=== PATIENT | male | born 1975 | race Caucasian/White ===

== ENCOUNTER 2020-10-10 14:26 | Outpatient (REF) | payer OTHER, SELFPAY ==
[2020-10-10 15:05] LABS: COVID-19 Test Negative (Negative)
== END 2020-10-10 14:27 | disposition home or self-care (01) ==
LOC: HO.LAB 14:26
PROVIDERS: Visit Provider Internal Medicine
DX: Z20.828 Contact with and (suspected) exposure to other viral communicable diseases (principal)
CPT/HCPCS: 87635; C9803

== ENCOUNTER 2020-10-14 09:47 | Outpatient (REF) | payer OTHER, SELFPAY ==
[2020-10-14 10:06] LABS: COVID-19 Test Positive (Negative)
== END 2020-10-14 09:48 | disposition home or self-care (01) ==
LOC: HO.LAB 09:47
PROVIDERS: PCP Internal Medicine; Visit Provider Internal Medicine
DX: Z20.828 Contact with and (suspected) exposure to other viral communicable diseases (principal)
CPT/HCPCS: 87635; C9803

== ENCOUNTER 2024-11-11 21:10 | Emergency (ER) | payer OTHER, SELFPAY ==
[2024-11-11 21:19] VITALS: BP 152/95; PULSE 76; RESP 16; TEMP 35.8; O2SAT 98; BMI 34.0
[2024-11-11 22:47] VITALS: BP 146/81; PULSE 76; RESP 18; TEMP 36.7; O2SAT 96
--- NOTE | 2024-11-11 23:46 | ED_ITS ---
HPI - General Adult General Chief complaint: General Medical Stated complaint: Difficulty swallowing, throat pain Time Seen by Provider: 11/11/24 23:29 Source: patient Mode of arrival: ambulatory Limitations: no limitations History of Present Illness ED Provider: Tyrese PEARCE narrative: 49-year-old male who denies any past medical history presents for evaluation of a foreign body sensation in his esophagus. Patient reports his symptoms started last night while eating dinner. He reports he was eating shrimp and pasta He swallowed and felt like something got stuck, so he vomited. He states that since then he has felt as if something is stuck in his throat. He is able to drink liquids and eat pudding without difficulty. If he tries to eat anything solid? I end up vomiting and regurgitating it bleeding? He has no pain, denies any shortness of breath He is able to manage his secretions without any difficulty He denies any history of similar He has never had an endoscopy Related Data Allergies Allergy/AdvReac Type Severity Reaction Status Date / Time SALMON Allergy Unknown UNK Uncoded 11/11/24 21:22 TUNA FISH Allergy Unknown UNK Uncoded 11/11/24 21:22 Review of Systems Constitutional: Constitutional: Denies body ache(s), Denies chills, Denies fever(s) and Denies headache(s) ENT: Denies headache(s), Denies sore throat and Denies throat swelling Comments: Foreign body sensation in throat Cardiovascular: Cardiovascular: Denies chest pain and Denies dyspnea Respiratory: Respiratory: Denies cough and Denies dyspnea Gastrointestinal: Gastrointestinal: Denies abdominal pain, Denies nausea and Denies vomiting Musculoskeletal: Musculoskeletal: Denies back pain Integumentary/Breasts: Skin/Breast: Denies rash Neurologic: Denies headache(s) Allergic/Immunologic: Allergic/Immunologic: Denies throat swelling PMFSH Social History Social History Unable to assess alcohol history related to: Unknown Use of substances other than those prescribed or required for medical reasons: Unknown Advance Directives: No Advance Directives Information Provided: No Do you have a plan to hurt others: No Plan Physical Exam ED Vital Signs: Vital Signs - 24 hr 11/11/24 21:19 11/11/24 22:47 Temperature 96.5 F L 98.0 F Pulse Rate 76 76 Respiratory Rate 16 18 Blood Pressure 152/95 H 146/81 H Pulse Oximetry 98 96 Oxygen Delivery Method Room Air Room Air BMI result Body Mass Index 34.0 Const General: healthy appearing, comfortable, no acute distress, alert and awake Nutritional Appearance: well nourished Orientation/consciousness: patient oriented x3 HENMT Head: Yes normocephalic and Yes atraumatic Throat: Yes posterior oropharynx normal Eyes Eyelids: Yes eyelids normal Conjunctivae: conjunctivae normal Sclerae: sclerae normal Corneas: corneas normal Pupils: Equal, round and reactive pupils present EOM: EOMs intact bilaterally Neck Neck: Yes full ROM Resp Effort & Inspection: normal respiratory effort, able to speak in complete sentences and not labored Cardio Rate: regular rate Rhythm: regular rhythm GI Inspection: No distended Palpation (GI): Soft to palpation, not firm, nontender, no guarding and not rigid Skin General skin exam: elasticity normal Neuro General: patient oriented x3 Cranial nerves: Yes Equal, round and reactive pupils present and Yes Bilaterally intact EOM present Cognition (Neuro): normal cognition Extrem Other: Moving all extremities well without any obvious deformities Medical Decision Making Medical Decision Making MDM Narrative: 49-year-old male presents for evaluation of a foreign body sensation in his throat. This started when he was eating over 24 hours ago. He was eating pasta and seafood has a time, this would not show up on an x-ray. The patient is able to manage his secretions and drink liquids and soft foods. The patient will be referred to GI for urgent endoscopy, this does not need to be done emergent as the patient is medically stable. The patient be discharged with the number for the on-call GI doctor and a referral was placed. Differential Diagnosis Differential Diagnoses: The differential diagnosis associated with the presenta tion includes Esophageal food impaction Food bolus Pharyngitis EGJ dysmotility Criselda's rings Discharge Plan Discharge Clinical Impression: Food impaction of esophagus Patient Disposition: Home, Self-Care Instructions: Esophageal Foreign Body (ED), Food Impaction (ED) Additional Instructions: You most likely have a food bolus stuck in your esophagus. You need an urgent endoscopy. In the meantime I recommend continuing a liquid diet. If you do not hear from Dr. Pham's office by noon on Wednesday, call the office at the number provided. Return for new or worsening symptoms Referrals: Dada Pham MD [Physician] - (esophageal food bolus) Print Language: [place]
[2024-11-12 00:03] VITALS: BP 140/82; PULSE 96; RESP 14; TEMP 36.7; O2SAT 98
[2024-11-12 00:05] VITALS: BP 140/82; PULSE 96; RESP 14; TEMP 36.7; O2SAT 98
== END 2024-11-12 00:05 | disposition home or self-care (01) ==
PROVIDERS: Emergency Provider Emergency Medicine; PCP Internal Medicine
DX: T18.128A Food in esophagus causing other injury, initial encounter (principal); W44.F3XA Food entering into or through a natural orifice, initial encounter; Y93.89 Activity, other specified; Y92.9 Unspecified place or not applicable; Y99.9 Unspecified external cause status
CPT/HCPCS: 99282; 99284

== ENCOUNTER → 2025-05-17 13:59 | Outpatient (BNVA) | payer OTHER, SELFPAY | PROVIDERS: PCP Internal Medicine; Visit Provider Physician Assistant Medical | DX: M54.12 Radiculopathy, cervical region (principal); S46.812A Strain of other muscles, fascia and tendons at shoulder and upper arm level, left arm, initial encounter; M24.812 Other specific joint derangements of left shoulder, not elsewhere classified; X50.0XXA Overexertion from strenuous movement or load, initial encounter | CPT/HCPCS: 72040; 73030; 99203 ==

== ENCOUNTER → 2025-05-22 11:14 | Outpatient (BNVA) | payer OTHER, SELFPAY | PROVIDERS: PCP Internal Medicine; Visit Provider Physician Assistant Medical | DX: M54.12 Radiculopathy, cervical region (principal); S46.812D Strain of other muscles, fascia and tendons at shoulder and upper arm level, left arm, subsequent encounter; X50.0XXD Overexertion from strenuous movement or load, subsequent encounter; M24.812 Other specific joint derangements of left shoulder, not elsewhere classified | CPT/HCPCS: 99213 ==

== ENCOUNTER → 2025-06-04 09:57 | Outpatient (BNVA) | payer OTHER, SELFPAY | PROVIDERS: PCP Internal Medicine; Visit Provider Physician Assistant Medical | DX: M54.12 Radiculopathy, cervical region (principal); S46.812D Strain of other muscles, fascia and tendons at shoulder and upper arm level, left arm, subsequent encounter; X50.0XXD Overexertion from strenuous movement or load, subsequent encounter; M24.812 Other specific joint derangements of left shoulder, not elsewhere classified | CPT/HCPCS: 99213 ==

== ENCOUNTER → 2025-06-18 09:03 | Outpatient (BNVA) | payer OTHER, SELFPAY | PROVIDERS: PCP Internal Medicine; Visit Provider Physician Assistant Medical | DX: M54.12 Radiculopathy, cervical region (principal); S46.812D Strain of other muscles, fascia and tendons at shoulder and upper arm level, left arm, subsequent encounter; X50.0XXD Overexertion from strenuous movement or load, subsequent encounter; M24.812 Other specific joint derangements of left shoulder, not elsewhere classified; Z02.79 Encounter for issue of other medical certificate | CPT/HCPCS: 99213 ==

== ENCOUNTER 2025-06-18 10:00 | Outpatient (RCR) | payer OTHER, SELFPAY ==
--- NOTE | 2025-05-24 09:54 | MHC.PT.EP ---
[facility] [place] Office [place] Office [place] [facility] [address] Mary Jo Clark [address] [phone] F: [phone] F: [phone] F: [phone] F: [phone] Physical Therapy Plan of Care Date of Evaluation: 05/24/25 Date of Surgery: NA Diagnosis: L cervical radiculopathy L shoulder derangement, trapezius strain Assessment: Jeffery is a 50 year old male who is referred to PT for L cervical radiculopathy, L shoulder derangement, trapezius strain . He sustained the injury at work about 1 week back while he was carrying an heavy individual in chair lift up the stairs. He had immediate onset of pain which got worse with time. 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 On PT examination he presented with mild TTP over L medial border of scapula, 4/10 in L upper trap, L armpit radiating down to tricep and medial 2 fingers with heavy lifting and reaching over head, decreased cervical ROM, decreased strength, altered posture and responded to cervical kareem exercises. He lives with family and is independent with ADLS but has pain with them and takes rest breaks. He would benefit from skilled PT to address the aforementioned impairments and improve tolerance to functional activities. Frequency and Duration: The patient will be seen 2/week for 6 weeks Short Term Goals: 1. Pt will have 50% decrease in pain which will enable him to sleep through the night in 2 weeks 2. Pt will be able to move his neck through all planes of motion without pain which will enable him to use his neck to drive do ADLS without pain in 3 weeks Chcf Goals: 1. Pt will demonstrate an increase in muscle strength by 1 grade which will enable him to carrying weights like grocery, his grand son without pain in 5 weeks 2. Pt will be independent with all HEP and return to PLOF in 6 weeks Treatment Plan: Modalities to reduce pain, spasms and effusion. Manual therapy to restore motion and function. Therapeutic exercise to improve strength and flexibility. Neuromuscular re-education for posture and balance. Therapeutic activities to return to functional activities of daily living. Electronically signed by: Lata Casey PT DPT Please sign and return to therapist. Thank you for your referral.
--- NOTE | 2025-06-27 14:27 | MHC.PT.DC ---
[facility] [place] Office [place] Office [place] Office [address] Mary Jo Clark [address] [phone] F: [phone] F: [phone] F: [phone] F: [phone] Physical Therapy Discharge Report Diagnosis: L cervical radiculopathy L shoulder derangement, trapezius strain Date of Surgery: NA Date of Evaluation: 05/24/25 Date of Discharge: 06/27/25 Treatments to Date: 7 Cancellations to Date: 0 No Shows to Date: 0 Discharge Status: Achieved Goals Improved Function Independent with HEP Discharge Summary: Jeffery attended 7 PT visits and made significant improvements with PT. He has achieved all goals set for him and is independent with all HEP. He was cleared to return to work. He is therefore being d/c from PT. Electronically signed by: Lata Casey PT DPT Please sign and return to therapist. Thank you for your referral.
== END 2025-06-27 14:28 | disposition home or self-care (01) ==
LOC: HO.PT 10:00
PROVIDERS: PCP Internal Medicine; Visit Provider Physician Assistant Medical
DX: M54.12 Radiculopathy, cervical region (principal); S46.812D Strain of other muscles, fascia and tendons at shoulder and upper arm level, left arm, subsequent encounter; M24.812 Other specific joint derangements of left shoulder, not elsewhere classified
CPT/HCPCS: 97110; 97112; 97140; 97161; 97530